=== PATIENT | male | born 1955 | race Caucasian/White ===

== ENCOUNTER 2016-06-26 10:44 | Emergency (ER) | payer OTHER ==
[~2016-06-26] VITALS: Ht 188 cm; Wt 82.6 kg
[~2016-06-26 10:44] MED LIST: CELEBREX100 MG; LAC HYDRIN TOP; MASON NATURAL2000 IU PO; NAPROXEN250 MG PO; NEURONTIN300 MG PO; NORCO 325 MG-51 TAB PO
[2016-06-26 10:56] VITALS: BP 132/70
[2016-06-26] MEDS ORDERED: PERCOCET 5-3251 EACH PO (11:23)
--- NOTE | 2016-06-26 11:24 | ED ANKLE/FOOT INJURY COMPLAINT ---
History of Present Illness General Chief Complaint: Upper Extremity Problem Stated Complaint: BILATERAL FOOT PAIN/CHRONIC Source: patient, old records Exam Limitations: no limitations Vital Signs & Intake/Output Vital Signs & Intake/Output Vital Signs Date Time Temp Pulse Resp B/P Pulse O2 O2 Flow FiO2 Ox Delivery Rate 06/26 1056 96.1 78 15 132/70 98 Room Air Room Air Allergies Coded Allergies: venom-honey bee (BEE VENOM (HONEY BEE)) (ANAPHYLAXIS 09/14/15) Reconcile Medications Acetaminophen/Hydrocodone Bi ([place] 325 MG-5 MG) 1 TAB TAB 1 TAB PO Q6H PRN PAIN Ammonium Lactate (Lac-Hydrin 12% 340GM) 340 GM LOT 1 NICKY TOP BID SKIN ( Reported) Celecoxib (Celebrex) (Unknown Strength) CAP (Unknown Dose) UNKNOWN (Reported) CHOLECALCIFEROL (VITAMIN D3) (Vitamin D) (Unknown Strength) SGL (Unknown Dose) PO DAILY SUPPLEMENT (Reported) Gabapentin (Neurontin) 300 MG CAP 1 CAP PO BID NERVE PAIN (Reported) Oxycodone HCl/Acetaminophen (Percocet 5-325 MG Tablet) 5 MG-325 MG TABLET 1 TAB PO TID PRN pain Triage Note: 60 YO MALE TO TRIAGE C/O BIALTERAL FOOT PAIN. PT STATES HE HAS HX OF ARTHRITIS AND NERVE PAIN. STATES PAIN STARTED THIS AM WHEN HE WOKE UP. PAIN 03/26 Triage Nurses Notes Reviewed? yes HPI: 60-year-old male with complaints of worsening neuropathy pain in both feet. He has no recent injury, he is on Lyrica and Naprosyn for this. He has been seen by his primary care doctor and snack bar cook for same and he has had neuropathy for many years secondary to alcohol abuse. There are no skin surface changes. He is here with his family. Pain is throbbing aching and severe without modifying factors (MEREDITH MENDES) Past History Travel History Traveled to [place] past 21 day No Medical History Any Pertinent Medical History? see below for history Neurological: BALBALANCE AND GAIT PROBLEMS NERVE PAIN ARTHRITIS Gastrointestinal: GI bleed Renal: BALAJI Musculoskeletal: olecranon bursitis CHRONIC KNEE AND LEG PAIN History of MRSA: No History of VRE: No History of CDIFF: No Surgical History Surgical History: non-contributory Psychosocial History Who do you live with Family Services at Home None What is your primary language Serbian Tobacco Use: Never used Family History Hx Contributory? No (MEREDITH MENDES) Review of Systems Review of Systems Constitutional: Reports: see HPI. EENTM: Reports: no symptoms. Respiratory: Reports: no symptoms. Cardiovascular: Reports: no symptoms. GI: Reports: no symptoms. Genitourinary: Reports: no symptoms. Musculoskeletal: Reports: back pain. Skin: Reports: no symptoms. Neurological/Psychological: Reports: see HPI. Hematologic/Endocrine: Reports: no symptoms. Immunologic/Allergic: Reports: no symptoms. All Other Systems: Reviewed and Negative (MEREDITH MENDES) Physical Exam Physical Exam General Appearance: well developed/nourished Leg/Knee/Thigh Left: normal range of motion, normal inspection Leg/Knee/Thigh Right: normal range of motion, normal inspection Comments: Well-developed well-nourished no apparent distress. HEENT: Atraumatic, extraocular motion intact Neck: Supple, no lymphadenopathy Back: Nontender Respiratory: No respiratory distress Extremities: No edema, full range of motion Bilateral lower extremities are neurovascularly intact with sensation motor grossly intact, no signs of trauma no skin surface changes dorsal pedal and posterior tibial pulses are intact 2+, capillary refill is less than 2 seconds. Sensation is normal. There are no signs of trauma Neuro: Alert and oriented x3 Psych: Mood affect normal, normal memory normal judgment. Skin: Warm and dry, no rash on exposed skin (MEREDITH MENDES) Progress Differential Diagnosis: DVT, CHF, arterial insufficiency, cellulitis, septic arthritis, gout, fracture, dislocation, sprain, contusion, compartmental syndrome Plan of Care: Patient is requesting Percocet for his pain. He'll follow-up with his primary care doctor or snack bar cook with continued symptoms. (MEREDITH MENDES) Departure Departure Disposition: HOME OR SELF CARE Condition: Stable Clinical Impression Primary Impression: Neuropathy Referrals: THEODORE DARNELL (PCP/Family) Additional Instructions: Take percocet for pain. continue the naprosyn and lyrica follow up with your primary doctor or podietrist if pain continues. Departure Forms: Customer Survey General Discharge Information Prescriptions: Current Visit Scripts Oxycodone HCl/Acetaminophen (Percocet 5-325 MG Tablet) 1 TAB PO TID PRN pain #10 TAB Comments I received a call from pharmacist stating that patient is on naltrexone which is an opiate antagonist and would block narcotic pain medication. We have switched him to Dolobid and a prescription was called into the pharmacist verbally. 1 tab by mouth twice a day for 14 tablets, 500 mg (MEREDITH MENDES) PA/SCHOOL TEACHER Co-Sign Statement Statement: ED Attending supervision documentation- [] I saw and evaluated the patient. I have also reviewed all the pertinent lab results and diagnostic results. I agree with the findings and the plan of care as documented in the PA's/SCHOOL TEACHER's documentation. [X] I have reviewed the ED Record and agree with the PA's/SCHOOL TEACHER's documentation. [] Additions or exceptions (if any) to the PAs/SCHOOL TEACHER's note and plan are summarized below: [] (OLMAN PARK,JULIUS)
== END 2016-06-26 11:56 ==
LOC: ERH 10:44
DX: G62.9 Polyneuropathy, unspecified (principal)

== ENCOUNTER 2016-10-14 13:33 | Emergency (ER) | payer OTHER ==
[~2016-10-14] VITALS: Ht 188 cm; Wt 82.6 kg
[~2016-10-14 13:33] MED LIST changes: +PERCOCET 5-3251 EACH PO
[2016-10-14 13:47] VITALS: BP 110/74
[2016-10-14] MEDS ORDERED: PERCOCET 5-3251 EACH PO (14:08)
--- NOTE | 2016-10-14 14:10 | ED MVC/FALL/TRAUMA COMPLAINT ---
History of Present Illness General Chief Complaint: Low Back Pain/Injury Stated Complaint: RT LOWER BACK PAIN S/P FALL LAST PM Source: patient Exam Limitations: no limitations Vital Signs & Intake/Output Vital Signs & Intake/Output Vital Signs Date Time Temp Pulse Resp B/P B/P Pulse O2 O2 Flow FiO2 Mean Ox Delivery Rate 10/14 1347 97.9 80 18 110/74 94 Room Air Allergies Coded Allergies: venom-honey bee (BEE VENOM (HONEY BEE)) (ANAPHYLAXIS 09/14/15) Reconcile Medications Acetaminophen/Hydrocodone Bi ([place] 325 MG-5 MG) 1 TAB TAB 1 TAB PO Q6H PRN PAIN Ammonium Lactate (Lac-Hydrin 12% 340GM) 340 GM LOT 1 NICKY TOP BID SKIN ( Reported) Celecoxib (Celebrex) (Unknown Strength) CAP (Unknown Dose) UNKNOWN (Reported) CHOLECALCIFEROL (VITAMIN D3) (Vitamin D) (Unknown Strength) SGL (Unknown Dose) PO DAILY SUPPLEMENT (Reported) Gabapentin (Neurontin) 300 MG CAP 1 CAP PO BID NERVE PAIN (Reported) Oxycodone HCl/Acetaminophen (Percocet 5-325 MG Tablet) 5 MG-325 MG TABLET 1 TAB PO TID PRN pain Oxycodone HCl/Acetaminophen (Percocet 5-325 MG Tablet) 5 MG-325 MG TABLET 1 TAB PO BID PRN PAIN Triage Note: PT STATES THAT HE HAS GAIT PROBLEMS AND AROUND 1230 PM LAST NIGHT HE FELL TO HIS R SIDE, PT LANDED ON HARD FLOOR, STATES THAT HE GOT THE WIND KNOCKED OUT OF HIM. COMPLAINS OF R SIDE LOW BACK PAIN INTO HIS LEG. DENIES HITTING HIS HEAD. Triage Nurses Notes Reviewed? yes Onset: Abrupt Duration: constant Timing: single episode today Severity: moderate Severity Numbers: 5 Method of Injury: direct blow, fall Loss of Consciousness: no loss of consciousness HPI: Patient is a 61-year-old male with a past medical history significant for peripheral lower extremity neuropathy and gait instability currently on Lyrica and naproxen who uses a cane at home in which she lives in a private residence with son where he states that last night he abruptly needed to go to the bathroom where using his cane he subsequently lost his balance and fell striking the right lateral aspect of his back to the floor and the wall. Patient suffered skin abrasions to his back with no bleeding. Patient denies any preceding episode of lightheaded sensation or dizziness. Denies any head strike. Denies any neck pain. Denies any abdominal pain shortness of breath. He son came to patient's aide patient declined any EMS services at the time patient was able to ambulate with pain to the right back however pain was worsened when patient woke up this morning. Patient was able to ambulate to the emergency room via transport of a car. Patient denies any lower extremity paresthesia weakness or pain or saddle paresthesia or bowel and bladder incontinence. (JORGE PAK) Past History Travel History Traveled to [facility] past 21 day No Medical History Any Pertinent Medical History? see below for history Neurological: BALBALANCE AND GAIT PROBLEMS NERVE PAIN ARTHRITIS Gastrointestinal: GI bleed Hepatic: NONE Renal: BALAJI Musculoskeletal: olecranon bursitis CHRONIC KNEE AND LEG PAIN Psychiatric: NONE Endocrine: NONE Blood Disorders: NONE Cancer(s): NONE HR ADMINISTRATIVE ASSISTANT/Reproductive: NONE History of MRSA: No History of VRE: No History of CDIFF: No Surgical History Surgical History: non-contributory Psychosocial History Who do you live with Family Services at Home None What is your primary language Telugu Tobacco Use: Never used ETOH Use: denies use Illicit Drug Use: denies illicit drug use Family History Hx Contributory? No (JORGE PAK) Review of Systems Review of Systems Constitutional: Reports: no symptoms. Eyes: Reports: no symptoms. Ears, Nose, Throat, Mouth: Reports: no symptoms. Respiratory: Reports: no symptoms. Cardiovascular: Reports: no symptoms. Gastrointestinal/Abdominal: Reports: no symptoms. Genitourinary: Reports: no symptoms. Musculoskeletal: Reports: see HPI. Skin: Reports: see HPI. Neurological/Psychological: Reports: no symptoms. All Other Systems: Reviewed and Negative (JORGE PAK) Physical Exam Physical Exam General Appearance: no apparent distress, alert, awake Comments: Well-developed well-nourished person in no acute distress HEENT: Normal EENT exam Neck: Supple, no lymphadenopathy, normal range of motion without pain or tenderness Back: Inspection noted to right lateral paralumbar region of superficial skin abrasion and moderate point tenderness noted, no central spinous tenderness noted, decreased active range of motion noted No flank tenderness Cardiovascular: Regular rate and rhythms no murmurs rubs or gallops, normal JVP Respiratory: Chest nontender. No respiratory distress.breath sounds clear to auscultation bilaterally Abdomen: Soft, nontender nondistended, no appreciable organomegaly. Normal bowel sounds. No ascites Extremity: No edema, no calf tenderness to palpation, normal and equal pulses. Bilateral lower extremity myotomes dermatomes DTRs intact Neuro: Alert oriented x3, motor sensory normal, Skin: No appreciable rash on exposed skin, skin is warm and dry. Psych: Mood and affect is normal, memory and judgment is normal. Core Measures ACS in differential dx? No Severe Sepsis Present: No Septic Shock Present: No (JORGE PAK) Progress Differential Diagnosis: aoritic dissection, abd injury, C/T/L spine injury, ext injury, ICH, pelvis injury, pnemothorax, spinal cord injury, CAUDA EQUINA SYNDROME Plan of Care: NEXUS CRITERIA scored as 0 in which patient has no central spinous tenderness and no compromise of lower extremity neurovascular impairment. Patient had normal steady gait with cane assistance under my supervision. At this time patient does not require ridging of low back for concerns of skin abrasion and muscular strain. I discussed disposition and plan with son and patient to begin using at night the walker for fall prevention Upon discharge patient looks well no apparent distress and will comply with discharge instructions and had no questions (JORGE PAK) Departure Departure Disposition: HOME OR SELF CARE Condition: Stable Clinical Impression Primary Impression: Fall Secondary Impressions: Low back strain, Peripheral neuropathy, Skin abrasion Referrals: THEODORE DARNELL (PCP/Family) Additional Instructions: As discussed continue home medications as directed. Continue using the cane and /or begin using the prescription of the assisted walker for fall prevention. Begin icing the area directly 20 minutes every 2 hours continue previously prescribed Naprosyn for pain begin the prescription of Percocet for breakthrough pain relief. If no better follow-up with your primary care doctor in 5 days. Prescription of Percocet is waiting at [facility] pharmacy. Please obtain the assisted walker prescription at a [facility]. If symptoms worsen return to emergency room Departure Forms: Customer Survey General Discharge Information Prescriptions: Current Visit Scripts Oxycodone HCl/Acetaminophen (Percocet 5-325 MG Tablet) 1 TAB PO BID PRN PAIN #10 TAB (JORGE PAK) PA/BLOCK FEEDER Co-Sign Statement Statement: ED Attending supervision documentation- [] I saw and evaluated the patient. I have also reviewed all the pertinent lab results and diagnostic results. I agree with the findings and the plan of care as documented in the PA's/BLOCK FEEDER's documentation. [X] I have reviewed the ED Record and agree with the PA's/BLOCK FEEDER's documentation. [] Additions or exceptions (if any) to the PAs/BLOCK FEEDER's note and plan are summarized below: [] (DOV PARK,MIAN Watkins)
== END 2016-10-14 14:21 ==
LOC: ERH 13:33
DX: S30.810A Abrasion of lower back and pelvis, initial encounter (principal); S39.012A Strain of muscle, fascia and tendon of lower back, initial encounter; G62.9 Polyneuropathy, unspecified; W19.XXXA Unspecified fall, initial encounter; Y92.009 Unspecified place in unspecified non-institutional (private) residence as the place of occurrence of the external cause; Y93.9 Activity, unspecified